=== PATIENT | female | born 1995 | race Caucasian/White ===

== ENCOUNTER 2025-02-23 08:35 | Emergency (ER) | payer MEDICAID, SELFPAY ==
[2025-02-23 08:41] VITALS: BP 112/70; PULSE 74; RESP 16; TEMP 37; O2SAT 97; BMI 33.1
--- NOTE | 2025-02-23 08:48 | PC.NURSE ---
Last dose letter/methadone verification faxed to pharmacy.
--- NOTE | 2025-02-23 09:31 | ED_ITS ---
HPI - General Adult General Chief complaint: General Medical Stated complaint: Med issue Time Seen by Provider: 02/23/25 09:11 Source: patient Mode of arrival: ambulatory Limitations: no limitations History of Present Illness ED Provider: Trey Rubio HPI narrative: 29 yold female with pmh of substance abuse presents to the ED for methadone dosage. Patient states she takes 50 mg of methadone and last dose yesterday. Patient states today she she went to the methadone clinic and the computer system was down so they sent her to the ED to get her dose. Patient states no physical complaints Related Data Home Medications ?Medication ?Instructions ?Recorded ?Confirmed methadone 5 mg/5 mL oral solution 50 mg PO DAILY 02/2302/23/25 Allergies Allergy/AdvReac Type Severity Reaction Status Date / Time No Known Allergies Allergy Verified 02/23/25 08:44 Review of Systems Review of Systems: Methadone dose Yes all other systems are reviewed and are negative [facility] Social History Social History Advance Directives: No Advance Directives Information Provided: Yes Physical Exam ED Vital Signs: Vital Signs - 24 hr 02/23/25 08:41 02/23/25 10:31 Temperature 98.6 F 98.6 F Pulse Rate 74 74 Respiratory Rate 16 16 Blood Pressure 112/70 112/70 Pulse Oximetry 97 97 Oxygen Delivery Method Room Air Room Air BMI result Body Mass Index 33.1 Const General: cooperative, healthy appearing, comfortable, no acute distress, well developed, alert, awake and Physically active Orientation/consciousness: patient oriented x3 HENMT Head: Yes normal to inspection, Yes No palpable skull fracture present, Yes normocephalic and Yes atraumatic Eyes General: appearance normal, both eyes and all related structures Neck Neck: Yes normal visual inspection, Yes full ROM, Yes no lymphadenopathy, Yes no meningeal signs, Yes trachea midline, Yes supple, No anterior neck swelling and No tender Chest Chest palpation & inspection: normal inspection of the chest and normal palpation of entire chest wall Resp Effort & Inspection: normal respiratory effort and able to speak in complete sentences Auscultation: clear to auscultation bilaterally Cardio Jugular venous distension: no JVD Heart sounds: S1 normal heart sound present and S2 normal heart sound present GI Inspection: Yes normal to inspection Palpation (GI): Soft to palpation, not firm, nontender, no guarding and not rigid General: Yes no CVA tenderness Back/Spine/Pelvis Back: no CVA tenderness and No back tenderness Skin General skin exam: no rashes or lesions noted, elasticity normal and turgor normal Neuro General: patient oriented x3, gait normal, tone normal, moves all extremities, Normal light touch and pain sensation, no meningeal signs, no focal motor deficits, CN's II-XI intact bilaterally and normal sensation to monofilament Extrem General: Yes normal to inspection, Yes full ROM and Yes capillary refill normal Psych Appearance: grossly normal, well kempt and not disheveled Medications Administered Discontinued Medications Generic Name Dose Route Start Last Admin Trade Name Any PRN Reason Stop Dose Admin Methadone HCl 50 mg 02/23/25 09:39 02/23/25 09:50 Methadone Hcl 20 Mg/2 Ml Oral.Conc PO 02/23/25 09:40 50 mg ONCE ONE Administration Medical Decision Making Medical Decision Making MDM Narrative: 29-year-old female presents to ED for methadone dose. Patient states no physical complaints. Methadone dose was confirmed. Methadone dose order placed. 10:26: Methadone given. Patient like to be discharged. Patient has no complaints Differential Diagnosis Differential Diagnoses: The differential diagnosis associated with the presentation includes (Methadone) Admission/Observation Consideration of admission/observation: Escalation of care including admission/observation considered Prescription Management I considered prescription management with: Other (Patient) Discharge Plan Discharge Clinical Impression: Medication refill Patient Disposition: Home, Self-Care Instructions: Medicine Refill (ED) Additional Instructions: Opiate use disorder You were seen in our Emergency Department today for treatment of opiate use disorder. You may have been dosed with medication for opiate use disorder (MOUD) in the form of suboxone or methadone. You may experience feeling some withdrawal symptoms and this is normal. The? dose in the Emergency Department is a starting dose and meant to be titrated up once you follow up with a clinic. Please do not feel discouraged, it is a process. The nurse has reviewed with you where to follow up and what information to bring with you, to continue treatment. You also may have been given naloxone (narcan) to take home with you. This medication is used to potentially treat opiate overdose. If you decide you want to stop or cut down on how much you?re using, you can call or walk into our outpatient Addiction Treatment office: [facility] (M-F 9am-5p) [address] [place] [address], [address] [phone] You may have been provided with safer injection?items, please take time to take care of YOU and your health. Use new supplies whenever possible to lessen the chances of infections and other illnesses.? ?If you need more supplies, please go [facility],? [address], [place] you can call or text to coordinate delivery of safer supplies. You were also provided a list of several treatment providers in the area.? If you experience any worsening symptoms you cannot control please return to the ED or call 911. Please follow up at your next appointment. Things to look out for are fevers, chest pain, shortness of breath, severe pain, dizziness, fainting or any other concerns. Prescriptions: No Action methadone 5 mg/5 mL Solution 50 mg PO DAILY Interventions: ED Discharge Assessment Last Done: 02/23/25 10:31 Discharge Date/Time: 02/23/25 10:32 Print Language: Marshallese
--- NOTE | 2025-02-23 09:45 | HE.PHANOTE ---
METHADONE Dose: 50mg, last dosed 02/22/25 @0654 per Jessika Long at [facility].
[2025-02-23] MEDS: methADONE HCl 20 MG/2 ML ORAL.CONC 50 MG PO (09:50)
[2025-02-23 10:31] VITALS: BP 112/70; PULSE 74; RESP 16; TEMP 37; O2SAT 97
== END 2025-02-23 10:32 | disposition home or self-care (01) ==
PROVIDERS: Emergency Provider Emergency Medicine
DX: F11.10 Opioid abuse, uncomplicated (principal); Z76.0 Encounter for issue of repeat prescription
CPT/HCPCS: 99282; 99283